=== PATIENT | male | born 2005 | race Caucasian/White ===

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

== ENCOUNTER 2024-04-15 15:25 | Emergency (ER) | payer BC, MEDICAID, SELFPAY ==
[2024-04-15 15:38] VITALS: BP 109/83; PULSE 93; RESP 16; TEMP 37.5; O2SAT 100
--- OUTSIDE RECORDS SUMMARY | 2024-04-15 16:11 | XMS_ITS | Clinical Summary ---
Author Organization [facility] Address [address] [place] [address] Care Team Providers Care Oil Well Cable Tool Operator Name Role Phone Cathie Marti MD Primary Care Provider [phone] Source Comments [facility],non-owned Affiliates and Associated Physician Practices is amultiple site organization consisting of ambulatory clinics and hospital sitesin [place], [place], [place] and [place]. This disclosure is being madepursuant to the Care Everywhere program and may not contain all information available regarding this patient. Last updated 17.[facility] [place] Allergies No known active allergies Medications Be aware that medications may not be up to date on this document. Always verify current medications with the patient. No known medications Active Problems Problem Noted Date Diagnosed Date Retained myringotomy tube 12/21/2011 Closed fracture of metacarpal bone 09/07/2011 Overview (12/16/2014): 07/27/2011 injured left hand playing kickball when his friend tackled him. Seen at [facility] and X-rays taken there. Left middle metacarpal minimally displaced fracture of dorsal shaft. 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 Resolved Problems Problem Noted Date Diagnosed Date Resolved Date Angioedema 08/02/2009 12/21/2011 Overview (12/16/2014): Family History Medical History Relation Name Comments None Known Father Hypertension Mother ND Other Asthma Paternal Grandfather Asthma Paternal Uncle Anesthesia Reaction Neg Hx Bleeding Disorders Neg Hx Childhood Hearing Disorder Neg Hx Cystic Fibrosis Neg Hx Eczema Neg Hx Immunodeficiency Neg Hx Tuberculosis Neg Hx Relation Name Status Comments Father Mother Other Paternal Grandfather Paternal Uncle Social History Tobacco Use Types Packs/Day Years Used Date Smoking Tobacco: Passive Smo ke Exposure - Never Smoker Smokeless Tobacco: Never Tobacco Cessation:Counseling Given: Yes Alcohol Use Standard Drinks/Week Comments Not Asked 0 (1 standard drink = 0.6 oz pur e alcohol) Sex and Gender Information Value Date Recorded Sex Assigned at Not on file Gender Identity Not on file Sexual Orientation Not on file Last Filed Vital Signs Vital Sign Reading Time Taken Comments Blood Pressure 108/62 01/18/2020 4:19 PM WINDOW TRIMMER Pulse 64 01/18/2020 4:19 PM WINDOW TRIMMER Temperature 36.6 ??C (97.8 ??F) 01/18/2020 4:19 PM CS T Respiratory Rate 20 01/18/2020 4:19 PM WINDOW TRIMMER Oxygen Saturation 98% 01/18/2020 4:19 PM WINDOW TRIMMER Inhaled Oxygen Concentration - - Weight 49 kg (108 lb) 01/18/2020 4:19 PM WINDOW TRIMMER Height 170.2 cm (5' 7 ) 01/18/2020 4:19 PM WINDOW TRIMMER Body Mass Index 16.92 01/18/2020 4:19 PM WINDOW TRIMMER Body Mass Index Percentile 7.32% 01/18/2020 4:1 9 PM WINDOW TRIMMER Growth Chart: CDC (Boys, 2-2 0 Years) Plan of Treatment Health Maintenance Due Date Last Done Comments HIV SCREENING 11/24/2019 HPV VACCINE (1 - Male 3-dose series) 11/24/2019 MENINGOCOCCAL (Group B) VACCINE (1 of 2 - Standard) 2020 HEPATITIS C SCREENING 11/19/2022 COVID-19 VACCINE (1 - 2023- season) 2023 INFLUENZA VACCINE (#1) 2023 8, 03/25/2009, 02/09/2008, Additional history exists DTAP/TDAP/TD VACCINES (1 - Tdap) 11/24/2023 HEPATITIS B VACCINE (1 of 3 - 19+ 3-dose series) 11/24/2023 PNEUMOCOCCAL VACCINE (1 of 2 - PCV) 11/24/2023 DEPRESSION SCREENING 03/18/2024 ZOSTER VACCINE (1 of 2) 2054 HIB VACCINE Aged Out No longer eligi ble based on patient's age to complete this topic MENINGOCOCCAL VACCINE Aged Out No carlos tim eligible based on patient's age to complete this topic Additional Health Concerns Infection Onset Date Last Indicated MRSA 10/27/2010 10/27/2010 Care Teams Oil Well Cable Tool Operator Relationship Specialty Start Date End Date Cathie Marti MD [address] [place] [id number] PCP - General 06/20/09
--- OUTSIDE RECORDS SUMMARY | 2024-04-15 16:11 | XMS_ITS | Clinical Summary ---
Author Organization [facility] Address [address] [place] [id number] Care Team Providers Care City Director Name Role Phone Cathie Marti MD Primary Care Provider [phone] Allergies No known active allergies Medications cloNIDine (CATAPRES) 0.1 MG Tablet Take 0.1 mg by mouth nightly. Active Social History Tobacco Use Types Packs/Day Years Used Date Smoking Tobacco: Never Smokeless Tobacco: Never Alcohol Use Standard Drinks/Week Comments Never 0 (1 standard drink = 0.6 oz pur e alcohol) AUDIT-C Answer Date Recorded Frequency of Alcohol Consumption Never 10/10/2018 Average Number of Drinks Not on file 019 Frequency of Binge Drinking Not on file 09/16 Sex and Gender Information Value Date Recorded Sex Assigned at Not on file Legal Sex Male 5:05 PM CDT Gender Identity Not on file Sexual Orientation Not on file Last Filed Vital Signs Vital Sign Reading Time Taken Comments Blood Pressure 106/75 11/08/2020 4:31 PM CDT Pulse 86 11/08/2020 4:31 PM CDT Temperature 35.9 ??C (96.6 ??F) 11/08/2020 3:19 PM CD T Respiratory Rate 20 11/08/2020 4:31 PM CDT Oxygen Saturation 99% 11/08/2020 4:31 PM CDT Inhaled Oxygen Concentration - - Weight 59 kg (130 lb) 11/08/2020 3:19 PM CDT Height 124.5 cm (4' 1 ) 10/10/2018 5:15 PM CDT Body Mass Index - - Plan of Treatment Health Maintenance Due Date Last Done Comments Hepatitis C Virus (HCV) Screening 2004 Human Papillomavirus (HPV) Immunization (1 - Male 3-dose series) 11/24/2019 Meningococcal B Immunization (1 of 2 - Standard) 2020 Influenza Immunization (#1) 11/17/20230 06/2017, 01/22/2011, 12/29/2009, Additional history exists SARS-COV-2 Immunization ( - 2023- season) 2023 Respiratory Syncytial Virus (RSV) Immunization (Adult) (1 - 1-dose 75+ series) 11/24/2079 Hepatitis B Immunization Completed 006, 04/06/2005, 01/23/2005, Additional history exists Pneumococcal Immunization Combined Aged Out 11/29/2005, 06/06/2005, 04/06/2005, Additional history exists No longer eligible based on patient's age to complete this topic Hepatitis A Immunization Discontinued 11/29/2008, 02/15 Measles Mumps Rubella (MMR) Immunization Discontinued 12/02/2008, 11/29/2005 Polio (IPV) Immunization Discontinued 009, 06/06/2005, 04/06/2005, Additional history exists Varicella Immunization Discontinued 0, 12/02/2008, 11/29/2005 DTaP/Tdap/Td Immunization Discontinued 2016, 12/02/2008, 02/26/2006, Additional history exists Meningococcal Immunization (ACWY) Aged Out 10/29/2016 No longer eligible based on patient's age to complete this topic TdaP Immunization Completed 10/29/2016 Rotavirus Immunization Aged Out No lo nger eligible based on patient's age to complete this topic Insurance MEDICAID [employer] Care Teams City Director Relationship Specialty Start Date End Date Cathie Marti MD [address] [place] [address] PCP - General Pediatrics 10/10/18
--- OUTSIDE RECORDS SUMMARY | 2024-04-15 16:11 | XMS_ITS | Referral Summary ---
Author Organization [facility] Address [address] [place] [address] Care Team Providers Care Senior Advisory Name Role Phone Cathie Marti MD Primary Care Provider [phone] Source Comments [facility],non-owned Affiliates and Associated Physician Practices is amultiple site organization consisting of ambulatory clinics and hospital sitesin [place], [place], [place] and [place]. This disclosure is being madepursuant to the Care Everywhere program and may not contain all information available regarding this patient. Last updated 17.[facility] [place] Allergies No known active allergies Medications Be aware that medications may not be up to date on this document. Always verify current medications with the patient. No known medications Active Problems Problem Noted Date Diagnosed Date Retained myringotomy tube 12/21/2011 Closed fracture of metacarpal bone 09/07/2011 Overview (12/16/2014): 07/27/2011 injured left hand playing kickball when his friend tackled him. Seen at [facility] and X-rays taken there. Left middle metacarpal minimally displaced fracture of dorsal shaft. 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 Resolved Problems Problem Noted Date Diagnosed Date Resolved Date Angioedema 08/02/2009 12/21/2011 Overview (12/16/2014): Social History Tobacco Use Types Packs/Day Years [...] Comments Blood Pressure 108/62 01/18/2020 4:19 PM GLYCERINE PLANT OPERATOR Pulse 64 01/18/2020 4:19 PM GLYCERINE PLANT OPERATOR Temperature 36.6 ??C (97.8 ??F) 01/18/2020 4:19 PM CS T Respiratory Rate 20 01/18/2020 4:19 PM GLYCERINE PLANT OPERATOR Oxygen Saturation 98% 01/18/2020 4:19 PM GLYCERINE PLANT OPERATOR Inhaled Oxygen Concentration - - Weight 49 kg (108 lb) 01/18/2020 4:19 PM GLYCERINE PLANT OPERATOR Height 170.2 cm (5' 7 ) 01/18/2020 4:19 PM GLYCERINE PLANT OPERATOR Body Mass Index 16.92 01/18/2020 4:19 PM GLYCERINE PLANT OPERATOR Body Mass Index Percentile 7.32% 01/18/2020 4:1 9 PM GLYCERINE PLANT OPERATOR Growth Chart: CDC (Boys, 2-2 0 Years) Plan of Treatment Not on file Additional Health Concerns Infection Onset Date Last Indicated MRSA 10/27/2010 10/27/2010 Care Teams Senior Advisory Relationship Specialty Start Date End Date Cathie Marti MD [address] [place] [address] [facility] - General 06/20/09
--- OUTSIDE RECORDS SUMMARY | 2024-04-15 16:11 | XMS_ITS | Patient Health Summary ---
Author Organization [facility] Address [address] [place] [address] Care Team Providers Care Creative Services Writer Name Role Phone Cathie Vaughn MD Primary Care Provider Note from [facility],non-owned Affiliates and Associated Physician Practices is amultiple site organization consisting of ambulatory clinics and hospital sitesin [place], [place], [place] and [place]. This disclosure is being madepursuant to the Care Everywhere program and may not contain all information available regarding this patient. Last updated 17.[facility] Allergies No known active allergies* Amoxicillin(Urticaria,Swelling),Inactive * Floxin Otic(Rash) -High Criticality,Inactive * Ofloxacin(Urticaria,Swelling),Inactive * Omnicef(Urticaria,Swelling),Inactive * Cefixime(Urticaria,Swelling),Inactive Medications Be aware that medications may not be up to date on this document. Always verify current medications with the patient. 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 Resolved Problems Problem Noted Date Diagnosed Date Resolved Date Angioedema 08/02/2009 12/21/2011 Social History Tobacco Use Types Packs/Day Years [...] Comments Blood Pressure 108/62 01/18/2020 4:19 PM BEET FLUMER Pulse 64 01/18/2020 4:19 PM [facility] FL[facility]ER Temperature 36.6 ??C (97.8 ??F) 01/18/2020 4:19 PM CS T Respiratory Rate 20 01/18/2020 4:19 PM BEET FLUMER Oxygen Saturation 98% 01/18/2020 4:19 PM BEET FLUMER Inhaled Oxygen Concentration - - Weight 49 kg (108 lb) 01/18/2020 4:19 PM BEET FLUMER Height 170.2 cm (5' 7 ) 01/18/2020 4:19 PM [facility] FLUMER Body Mass Index 16.92 01/18/2020 4:19 PM [facility]ET FLUMER Body Mass Index Percentile 7.32% 01/18/2020 4:1 9 PM BEET FLUMER Growth Chart: CDC (Boys, 2-2 0 Years) Procedures * CULTURE MRSA(Performed 11/26/2015) * REMOVAL CERUMEN EAR(Performed 12/21/2011) Performed for Unspecified otitis media, Retained foreign body of middle ear * EXAM UNDER ANESTHESIA EAR/NOSE/THROAT(Performed 12/21/2011) Performed for Unspecified otitis media, Retained foreign body of middle ear * REMOVAL TYMPANOSTOMY TUBE(Performed 12/21/2011) Performed for Unspecified otitis media, Retained foreign body of middle ear * CULTURE MRSA(Performed 12/21/2011) * XR HAND LEFT 3VW OR MORE(Performed 09/11/2011) Performed for Closed fracture of metacarpal bone(s), site unspecified * XR HAND LEFT 3VW OR MORE(Performed 08/21/2011) Performed for Closed fracture of metacarpal bone(s), site unspecified * XR HAND LEFT 3VW OR MORE(Performed 07/31/2011) Performed for Closed fracture of unspecified phalanx or phalanges of hand * EKG 15-LEAD(Performed 03/29/2011) Performed for Undiagnosed cardiac murmurs * ECHO CONSULT - PEDIATRIC(Performed 03/23/2011) Performed for Undiagnosed cardiac murmurs * CULTURE EAR(Performed 10/24/2010) Performed for Otorrhea * MASOOD BLOOD TITER(Performed 08/02/2009) Performed for Unspecified Urticaria * ALLERGEN INHALANT COMPREHENSIVE PROFILE(Performed 08/02/2009) Performed for Asthma, Nonallergic Rhinitis * ALLERGEN FOOD COMMON ADULT PROFILE(Performed 08/02/2009) Performed for Urticaria, Angioneurotic Edema not Elsewhere Classified * ALT(Performed 08/02/2009) Performed for Urticaria, Angioneurotic Edema not Elsewhere Classified * T4 FREE(Performed 08/02/2009) Performed for Urticaria, Angioneurotic Edema not Elsewhere Classified * THYROID AB PANEL (TPO AB+THYROGLOB AB)(Performed 08/02/2009) Performed for Urticaria, Angioneurotic Edema not Elsewhere Classified * RHEUMATOID FACTOR BLOOD SCREEN(Performed 08/02/2009) Performed for Urticaria, Angioneurotic Edema not Elsewhere Classified * MASOOD BLOOD SCREEN W/REFLEX TITER(Performed 08/02/2009) Performed for Urticaria, Angioneurotic Edema not Elsewhere Classified * COMPLEMENT C4(Performed 08/02/2009) Performed for Urticaria, Angioneurotic Edema not Elsewhere Classified * COMPLEMENT C3(Performed 08/02/2009) Performed for Urticaria, Angioneurotic Edema not Elsewhere Classified * C-REACTIVE PROTEIN(Performed 08/02/2009) Performed for Urticaria, Angioneurotic Edema not Elsewhere Classified * ERYTHROCYTE SEDIMENTATION RATE(Performed 08/02/2009) Performed for Urticaria, Angioneurotic Edema not Elsewhere Classified * TSH(Performed 08/02/2009) Performed for Urticaria, Angioneurotic Edema not Elsewhere Classified * COMPLEMENT TOTAL(Performed 08/02/2009) Performed for Urticaria, Angioneurotic Edema not Elsewhere Classified * PATHOLOGY/CYTOLOGY REPORT ORDER(Performed 07/08/2009) * GROSS EXAM PATHOLOGY(Performed 07/07/2009) Performed for Chronic Tonsillitis Results * CULTURE MRSA (11/26/2015 2:28 PM CDT) Only the most recent of2 resultswithin the time period is included. Culture Negative for MRSA ANNELIESE 11/28/2015 5:44 AM CDT [facility]CRO[facility] Microbiology SPECIMEN FROM NASAL FOSSAE / Unknown 11/26/2015 2:28 PM CDT 11/26/2015 4:47 PM CDT Steffi Walker DO LAB - MICROBIOLOGY O RDJEREMÍAS [facility] MICRO[facility]OLOG[facility] [address] [place], [place] [address], [facility] [phone] * XR HAND 3+ VW LEFT (09/11/2011 2:28 PM CDT) Only the most recent of3 resultswithin the time period is included. Anatomical Region Laterality Modality Wrist / Hand Radiographic Sheila ging 09/11/2011 3:04 PM CDT Impressions 09/11/2011 4:25 PM CDT Healing proximal third metacarpal fracture. Wing Gil MD Narrative 09/11/2011 4:25 PM CDT Exam: Left hand, 3 views Comparison: ??08/21/2011 Findings: Since the previous exam, there is increased bone formation at the proximal third metacarpal fracture. The fracture fragments are unchanged in position and alignment. ??No new fracture is demonstrated. The joint spaces are preserved. Procedure Note Nahed Mujica MD - 09/11/2011 Exam: Left hand, 3 views Comparison: 08/21/2011 Findings: Since the previous exam, there is increased bone formation at the proximal third metacarpal fracture. The fracture fragments are unchanged in position and alignment. No new fracture is demonstrated. The joint spaces are preserved. IMPRESSION Healing proximal third metacarpal fracture. Wing Gil MD Ronak Ac MD DIAGNOSTIC IMAGING O RDERABLES * EKG 15-LEAD (03/29/2011) Ordering Provider Unlisted ECG ORDERYves HARRIS * ECHO CONSULT - PEDIATRIC (03/23/2011 8:56 AM BEET FLUMER) 03/23/2011 8:56 AM BEET FLUMER Narrative [facility] - 03/23/2011 4:13 PM BEET FLUMER , Transthoracic Echocardiogram 2D, M-mode, Doppler, and Color Doppler Name: TED SABA MR #: [id number] Study date: 03/23/2011 Age: 5 years : 2005 Gender: Male Ht: 44.5 in / 113.1 cm Wt: 35.6 lb / 16.2 kg BSA: 0.72 m?? HR: BP: / age: NATALY: Maternal age: REFERRING PHYSICIAN: ??CATHIE VAUGHN MD FACTORY EXPERT: ??Марина Jasso MD PEDIATRIC ECHO AUTOMOTIVE TEACHER: ??Wes Stewart RDCS Indications: Murmur evaluation. History: ADHD Signs/symptoms include murmur. Procedure: The procedure was performed in the echo lab. Anatomic relationships: Visceral situs: normal. Left sided cardiac apex (levocardia). Normal atrial situs (atrial situs solitus). Concordant atrioventricular alignment. Ventricular d-loop. Normal infundibular anatomy. Concordant ventriculoarterial connection. Normally related great vessels. Systemic veins: SVC: The superior vena cava appeared of normal caliber, with normal flow. IVC: The inferior vena cava was normal in size and course. IVC Doppler: The flow pattern was normal. Pulmonary veins: At least two pulmonary veins drained normally to the left atrium. Doppler: Doppler flow pattern was normal in the pulmonary vein(s). Right atrium: Size was normal. Left atrium: Size was normal. Atrial septum: No defect or patent foramen ovale was identified. Tricuspid valve: The valve structure was normal. Doppler: The transtricuspid velocity was within the normal range. There was no evidence for tricuspid stenosis. There was trivial regurgitation. Mitral valve: Valve structure was normal. There is no mitral valve prolapse. Doppler: The transmitral velocity was within the normal range. There was no evidence for stenosis. There was no regurgitation. Right ventricle: The cavity size was normal. Wall thickness was normal. Systolic function was normal. RV outflow tract: There was no obstruction. Left ventricle: The cavity size was normal. Wall thickness was normal. Systolic function was normal. There were no regional wall motion abnormalities. LV outflow tract: There was no outflow obstruction. Ventricular septum: Thickness was normal. The septum was intact. Pulmonic valve: Leaflets exhibited normal thickness and normal cuspal separation. Doppler: The transpulmonic velocity was within the normal range. Aortic valve: The valve was trileaflet. Leaflets exhibited normal thickness and normal cuspal separation. Doppler: Transaortic velocity was within the normal range. There was no stenosis. There was no regurgitation. Pulmonary artery: The main pulmonary artery was normal, with normal-sized, confluent proximal branch pulmonary arteries. Aorta: A normal aortic arch was appreciated. The root was normal in size. The ascending aorta size was normal. Coronary arteries: The size and course of the left main, proximal left anterior descending, and proximal right coronary arteries were normal. Left main coronary artery: Flow was normal. Left anterior descending: Flow was normal. Extracardiac shunting: No ductal shunt was detected by Doppler. Pericardium: There was no pericardial effusion. Impressions: - ??Diagnoses: No intracardiac abnormalities demonstrated and normal biventricular systolic function. Prepared and signed by Марина Jasso MD Signed 03/23/2011 16:15:37 System measurement tables MM %FS: 33.7 % EDV(Teich): 42.9 ml EF(Teich): 63.8 % ESV(Teich): 15.5 ml IVSd: 4.6 mm IVSs: 8.5 mm LVIDd: 32.6 mm LVIDs: 21.6 mm LVPWd: 4.6 mm LVPWs: 8.5 mm LVd Mass: 26.5 g LVd Mass (ASE): 32.7 g LVd Mass Ind (ASE): 45.4 g/m2 LVd Mass Index: 36.8 g/m2 LVs Mass: 35.9 g LVs Mass (ASE): 40.2 g LVs Mass Ind (ASE): 55.9 g/m2 LVs Mass Index: 49.9 g/m2 SV(Teich): 27.4 ml Procedure Note 03/23/2011 , Transthoracic Echocardiogram 2D, M-mode, Doppler, and Color Doppler Name: TED SABA MR #: [id number] Study date: 03/23/2011 Age: 5 years : 2005 Gender: Male Ht: 44.5 in / 113.1 cm Wt: 35.6 lb / 16.2 kg BSA: 0.72 m?? HR: BP: / age: NATALY: Maternal age: REFERRING PHYSICIAN: CATHIE VAUGHN MD FACTORY EXPERT: Марина Jasso MD PEDIATRIC ECHO AUTOMOTIVE TEACHER: Wes Stewart RDCS Indications: Murmur evaluation. History: ADHD Signs/symptoms include murmur. Procedure: The procedure was performed in the echo lab. Anatomic relationships: Visceral situs: normal. Left sided cardiac apex (levocardia). Normal atrial situs (atrial situs solitus). Concordant atrioventricular alignment. Ventricular d-loop. Normal infundibular anatomy. Concordant ventriculoarterial connection. Normally related great vessels. Systemic veins: SVC: The superior vena cava appeared of normal caliber, with normal flow. IVC: The inferior vena cava was normal in size and course. IVC Doppler: The flow pattern was normal. Pulmonary veins: At least two pulmonary veins drained normally to the left atrium. Doppler: Doppler flow pattern was normal in the pulmonary vein(s). Right atrium: Size was normal. Left atrium: Size was normal. Atrial septum: No defect or patent foramen ovale was identified. Tricuspid valve: The valve structure was normal. Doppler: The transtricuspid velocity was within the normal range. There was no evidence for tricuspid stenosis. There was trivial regurgitation. Mitral valve: Valve structure was normal. There is no mitral valve prolapse. Doppler: The transmitral velocity was within the normal range. There was no evidence for stenosis. There was no regurgitation. Right ventricle: The cavity size was normal. Wall thickness was normal. Systolic function was normal. RV outflow tract: There was no obstruction. Left ventricle: The cavity size was normal. Wall thickness was normal. Systolic function was normal. There were no regional wall motion abnormalities. LV outflow tract: There was no outflow obstruction. Ventricular septum: Thickness was normal. The septum was intact. Pulmonic valve: Leaflets exhibited normal thickness and normal cuspal separation. Doppler: The transpulmonic velocity was within the normal range. Aortic valve: The valve was trileaflet. Leaflets exhibited normal thickness and normal cuspal separation. Doppler: Transaortic velocity was within the normal range. There was no stenosis. There was no regurgitation. Pulmonary artery: The main pulmonary artery was normal, with normal-sized, confluent proximal branch pulmonary arteries. Aorta: A normal aortic arch was appreciated. The root was normal in size. The ascending aorta size was normal. Coronary arteries: The size and course of the left main, proximal left anterior descending, and proximal right coronary arteries were normal. Left main coronary artery: Flow was normal. Left anterior descending: Flow was normal. Extracardiac shunting: No ductal shunt was detected by Doppler. Pericardium: There was no pericardial effusion. Impressions: - Diagnoses: No intracardiac abnormalities demonstrated and normal biventricular systolic function. Prepared and signed by Марина Jasso MD Signed 03/23/2011 16:15:37 System measurement tables MM %FS: 33.7 % EDV(Teich): 42.9 ml EF(Teich): 63.8 % ESV(Teich): 15.5 ml IVSd: 4.6 mm IVSs: 8.5 mm LVIDd: 32.6 mm LVIDs: 21.6 mm LVPWd: 4.6 mm LVPWs: 8.5 mm LVd Mass: 26.5 g LVd Mass (ASE): 32.7 g LVd Mass Ind (ASE): 45.4 g/m2 LVd Mass Index: 36.8 g/m2 LVs Mass: 35.9 g LVs Mass (ASE): 40.2 g LVs Mass Ind (ASE): 55.9 g/m2 LVs Mass Index: 49.9 g/m2 SV(Teich): 27.4 ml Provider Unknown ECHO ORDERABLES [facility] [address] [place] [address] * CULTURE EAR (10/24/2010 2:30 PM CDT) Result [facility] Comment: Final GRAM STAIN Light GRAM POSITIVE COCCI Heavy WBC's CULTURE Heavy growth Mixed aerobic ?? ethan STAPHYLOCOCCUS AUREUS (MRSA) ??Heavy growth ??Methicillin-resistant ? staphylococci are resistant ? to all currently available ? Beta-lactam antibiotics. ? Contact Precautions ? required. For any ? questions, call Infection ? Control. ??Called/Copy sent to Infection ? Control 10/26 ??Called to/Read back by ??dr ? office 10/26 ??Ciprofloxacin ? ANNELIESE ?Resistant ?>=8 ?? ug/ml ??Clindamycin ? ANNELIESE ?Susceptible <=0.25 ?? ug/ml ??Erythromycin ?ANNELIESE ?Resistant ?>=8 ?? ug/ml ??Gentamicin ?ANNELIESE ?Susceptible ??<=0.5 ?? ug/ml ??Levofloxacin ?ANNELIESE ?Resistant ?4 ?? ug/ml ??Oxacillin ? ANNELIESE ?Resistant ?>=4 ?? ug/ml ??Tetracycline ?ANNELIEES ?Susceptible ?<=1 ?? ug/ml ??Trimeth/Sulfa ? ANNELIESE ?Susceptible ?? <=10 ?? ug/ml ??Vancomycin ?ANNELIESE ?Susceptible ??<=0.5 ?? ug/ml EAR PART / Unknown 1 2:30 PM CDT 10/24/2010 2:33 PM CDT Narrative Resulting Agency Comment Performed By [facility];[address];[place] [address] Alee Rick [facility] LAB - MICROBIOL OGY ORDERABLES [facility] [address] [place] [address] * ALLERGEN INHALANT COMPREHENSIVE PROFILE (08/02/2009 4:49 PM CDT) Allergen Alternaria alternata <0.10 <=0.34 KU/L [facility] Allergen Hormodendrum <0.10 <=0.34 KU/L [facility] Allergen Aspergillus Fumigatus <0.10 <=0.34 KU/L [facility] Allergen P. Notatum <0.10 <=0.34 KU/L [facility] Alelrgen Cat Dander <0.10 <=0.34 KU/L [facility] Allergen Dog Epithelium <0.10 <=0.34 KU/L [facility] Allergen Dermatophagoides pteronyssinus <0.10 <=0.34 KU/L [facility] Allergen Dermatophagoides farinae <0.10 <=0.34 KU/L [facility] Allergen Radha Grass <0.10 <=0.34 KU/L [facility] Allergen Manan Grass <0.10 <=0.34 KU/L [facility] Allergen Common Ragweed <0.10 <=0.34 KU/L [facility] Allergen [place] 0.11 <=0.34 KU/L [facility] Allergen Elm <0.10 <=0.34 KU/L [facility] Allergen Gardena Tree <0.10 <=0.34 KU/L [facility] Allergen [place] Tree <0.10 <=0.34 KU/L [facility] Allergen [place] Tree <0.10 <=0.34 KU/L [facility] Allergen [place] <0.10 <=0.34 KU/L [facility] Allergen Cow Dander <0.10 <=0.34 KU/L [facility] Allergen Horse Dander <0.10 <=0.34 KU/L [facility] Allergen House Dust Wilder <0.10 <=0.34 KU/L [facility] Allergen Barajas's Quarters <0.10 <=0.34 KU/L [facility] Allergen B[place] Grass <0.10 <=0.34 KU/L [facility] Allergen Ug[place]an Plantain <0.10 <=0.34 KU/L [facility] Allergen Aamir Grass <0.10 <=0.34 KU/L [facility] Allergen Perennial [place] Grass <0.10 <=0.34 KU/L [facility] Allergen British Thistle <0.10 <=0.34 KU/L [facility] Allergen Mugwort <0.10 <=0.34 KU/[facility] IgE Total 10 0 - 50 IU/ml [facility] Immunocap Score KU/L [facility] Comment: REFERENCE INTERVAL: Allergen, Interpretation Less than 0.10 kU/L......No significant level detected 0.10-0.34 kU/L...........Clinical relevance undetermined 0.35-0.70 kU/L...........Low 0.71-3.50 kU/L...........Moderate 3.51-17.50 kU/L..........High 17.51 kU/L or Greater....Very High Allergen results of 0.10-0.34 kU/L are intended for specialist use as the clinical relevance is undetermined. Although increasing ranges are reflective of increasing concentrations of allergen-specific IgE, this may not correlate with the degree of clinical response or skin testing when challenged with a specific allergen. The correlation of allergy laboratory results with clinical history and in vivo reactivity to specific allergens is essential. A negative test may not rule out clinical allergy or even anaphylaxis. Comment Ref Lab [facility] Comment: TEST INFORMATION: Immunoglobulin E To convert to ng/mL, multiply IU/mL by 2.4. BLOOD SPECIMEN / Unknown 08/02/2009 4:49 PM CDT 08/02/2009 5:35 PM CDT Narrative Resulting Agency Comment Performed By [facility] ? [address] ? [place], [place] [address] Zurdo aVrgas MD LAB - SEROLOGY ORDER ABHILASH Performing Organization Address City/[facility]/ZIP Co de Phone Number [facility] * ALLERGEN FOOD COMMON ADULT FOOD PROFILE (08/02/2009 4:49 PM CDT) Allergen Egg White <0.10 <=0.34 KU/[facility] Allergen Peanut <0.10 <=0.34 KU/[facility] Allergen Wheat <0.10 <=0.34 KU/[facility] Allergen Call <0.10 <=0.34 KU/[facility] Allergen Codfish <0.10 <=0.34 KU/[facility] Allergen Milk <0.10 <=0.34 KU/[facility] Allergen Soybean <0.10 <=0.34 KU/[facility] Allergen [place] <0.10 <=0.34 KU/[facility] Allergen Shrimp <0.10 <=0.34 KU/[facility] Allergen Scallop <0.10 <=0.34 KU/[facility] Allergen Clam <0.10 <=0.34 KU/[facility] IgE Total 10 0 - 50 IU/ml [facility] Comment Ref Lab [facility] Comment: TEST INFORMATION: Immunoglobulin E To convert to ng/mL, multiply IU/mL by 2.4. BLOOD SPECIMEN / Unknown 08/02/2009 4:49 PM CDT 08/02/2009 5:32 PM CDT Narrative Resulting Agency Comment Performed By [facility] ? [address] ? [place], [place] [address] Zurdo Vargas MD LAB - CHEMISTRY FAUSTINA LEE [facility] * RHEUMATOID FACTOR BLOOD SCREEN (08/02/2009 4:49 PM CDT) Rheumatoid Factor negative Negative [facility] BLOOD SPECIMEN / Unknown 08/02/2009 4:49 PM CDT 08/02/2009 5:20 PM CDT Zurdo Vargas MD LAB - CHEMISTRY FAUSTINA LEE Performing Organization Address [facility] Co de Phone Number [facility] * C-REACTIVE PROTEIN (08/02/2009 4:49 PM CDT) C-Reactive Protein <0.5 <1.0 mg/dl mg/dl [facility] BLOOD SPECIMEN / Unknown 08/02/2009 4:49 PM CDT 08/02/2009 5:48 PM CDT Zurdo Vargas MD LAB - CHEMISTRY FAUSTINA LEE Performing Organization Address [facility] Co de Phone Number [facility] * MASOOD BLOOD TITER (08/02/2009 4:49 PM CDT) MASOOD Positive, less than 1 to 40 Negative [facility] MASOOD Pattern No pattern detected. [facility] BLOOD SPECIMEN / Unknown 08/02/2009 4:49 PM CDT 08/04/2009 10:45 AM CDT Narrative Resulting Agency Comment Performed By [facility] ? Laboratory ? [address] Zurdo Vargas MD LAB - CHEMISTRY FAUSTINA LEE Performing Organization Address [facility]/ZIP Co de Phone Number [facility] * (ABNORMAL) MASOOD BLOOD SCREEN (08/02/2009 4:49 PM CDT) MASOOD Positive(H) Negative [facility] BLOOD SPECIMEN / Unknown 08/02/2009 4:49 PM CDT 08/02/2009 5:34 PM CDT Narrative Resulting Agency Comment Performed By [facility] ? Laboratory ? [address] [facility] Zurdo Vargas MD LAB - CHEMISTRY FAUSTINA LEE Performing Organization Address [facility]/ZIP Co de Phone Number [facility] * THYROID ANTIBODY PANEL (08/02/2009 4:49 PM CDT) Thyroglobulin Antibody <0.9 0.0 - 4.0 IU/ml [facility] Thyroid Peroxidase TPO Antibody 0.5 0.0 - 9.0 IU/ml [facility] Comment Ref Lab [facility] Comment: TEST INFORMATION: Thyroglobulin Antibody A value of 4.0 IU/mL or less indicates a negative result for thyroglobulin antibodies. BLOOD SPECIMEN / Unknown 08/02/2009 4:49 PM CDT 08/02/2009 5:33 PM CDT Narrative Resulting Agency Comment Performed By [facility] ? [address] ? [place], [place] [address] Zurdo Vargas MD LAB - CHEMISTRY FAUSTINA LEE Performing Organization Address City/[facility]/ZIP Co de Phone Number [facility] * SED RATE WESTERGREN AUTO (08/02/2009 4:49 PM CDT) Erythrocyte Sedimentation Rate Westergren 8 0 - 13 mm/Hr [facility] BLOOD SPECIMEN / Unknown 08/02/2009 4:49 PM CDT 08/02/2009 5:20 PM CDT Zurdo Vargas MD LAB - HEMATOLOGY MARINO VERONICA [facility] * COMPLEMENT C4 (08/02/2009 4:49 PM CDT) Complement C4 18 12 - 36 mg/dl [facility] BLOOD SPECIMEN / Unknown 08/02/2009 4:49 PM CDT 08/02/2009 5:46 PM CDT Zurdo Vargas MD LAB - SEROLOGY ORDER ABHILASH Performing Organization Address [facility] Co de Phone Number [facility] * ALT (08/02/2009 4:49 PM CDT) ALT 17 10 - 25 Units/L [facility] BLOOD SPECIMEN / Unknown 08/02/2009 4:49 PM CDT 08/02/2009 5:49 PM CDT Zurdo Vargas MD LAB - CHEMISTRY FAUSTINA LEE Performing Organization Address [facility] Co de Phone Number [facility] * T4 FREE (08/02/2009 4:49 PM CDT) T4 Free 0.8 0.71 - 1.85 ng/dl [facility] BLOOD SPECIMEN / Unknown 08/02/2009 4:49 PM CDT 08/02/2009 5:50 PM CDT Zurdo Vargas MD LAB - CHEMISTRY FAUSTINA LEE Performing Organization Address [facility] [place] Co de Phone Number [facility] * COMPLEMENT C3 (08/02/2009 4:49 PM CDT) Complement C3 108 85 - 193 mg/dl [facility] BLOOD SPECIMEN / Unknown 08/02/2009 4:49 PM CDT 08/02/2009 6:10 PM CDT Zurdo Vargas MD LAB - CHEMISTRY [facility] Performing Organization Address [facility] Co de Phone Number [facility] * COMPLEMENT TOTAL (08/02/2009 4:45 PM CDT) Complement Total CH50 96 60 - 144 Units [facility] Comment Ref Lab [facility] Comment: REFERENCE INTERVAL: Complement Activity, Total EIA ??59 ??Units or less .......... Low ??60-144 ?? Units .............. Normal ??145 Units or greater ....... High BLOOD SPECIMEN / Unknown 08/02/2009 4:45 PM CDT 08/02/2009 5:34 PM CDT Narrative Resulting Agency Comment Performed By [facility] ? [address] ? [place], [place] [address] Zurdo Vargas MD LAB - CHEMISTRY [facility]USTINA LEE Performing Organization Address [facility] Co de Phone Number [facility] * TSH (08/02/2009 4:45 PM CDT) Pathologist [facility] TSH 1.554 0.490 - 4.670 mcIU/mL [facility] BLOOD SPECIMEN / Unknown 08/02/2009 4:45 PM CDT 08/02/2009 5:52 PM CDT Zurdo Vargas MD LAB - CHEMISTRY [facility]EE Performing Organization Address [facility] Co de Phone Number [facility] * PATHOLOGY/CYTOLOGY REPORT ORDER (07/08/2009 2:55 PM CDT) Narrative 07/08/2009 2:55 PM CDT Ordered by an unspecified provider. Transcriptions Document, Scanned - 07/07/2009 12:00 AM CDT Scanned Document LAB - PATHOLOGY/CYTO LOGY ORDERABLES * GROSS EXAM PATHOLOGY (07/07/2009 12:45 PM CDT) [facility] Clinical History [facility] Comment: The patient is a 3-year-old boy with chronic otitis media with effusion and chronic tonsillitis. Gross Description [facility] Comment: Submitted fresh in one container for gross examination only, labeled with the patient's name, Ted Saba, and tonsils, are two egg- shaped, pink-clifton palatine tonsils measuring 2 x 1.3 x 1 cm and 2.2 x 1.3 x 1 cm, weighing approximately 4 grams combined. On cut surface, the tonsils have a cerebriform, yellow-clifton appearance. No sections are taken. ??(CT/nab) Gross Diagnosis [facility] Comment: GROSS DIAGNOSIS: ??PALATINE TONSILS. This case has been personally reviewed and interpreted by the attending (teaching) pathologist. Occupational Health Specialist MARLEY RAMOS, [facility] Pathologist Galileo zhao M.D. [facility] Electronically Signed By Galileo zhao M.D. [facility] SPECIMEN FROM TONSIL / Unknown 07/07/2009 12:45 PM CDT 07/07/2009 1:39 PM CDT Karen Chase MD LAB - PATHOLOGY/CYTO LOGY ORDERABLES [facility] Care Teams Creative Services Writer Relationship Specialty Start Date End Date Cathie Vaughn MD [address] [place] [address] [place] [address] [phone] PCP - General 06/20/09
--- NOTE | 2024-04-15 16:51 | ED_ITS ---
HPI - Nausea/Vomiting/Diarrhea General Chief complaint: Nausea/Vomiting/Diarrhea Stated complaint: nausea/can't keep anything down Time Seen by Provider: 04/15/24 16:30 Source: patient, family, RN notes reviewed and old records reviewed Mode of arrival: ambulatory Limitations: no limitations History of Present Illness HPI Narrative: 18 year old male accompanied by mother presents to express care with complaints of nausea, vomiting and diarrhea starting at 0100 today and has not been able to keep any food or fluids down. Patient reports that he does not have any abdominal pain just some cramping sensation in stomach with diarrhea. Patient states he has had a low grade fever, denies any chills or sweats or any body aches. Patient has not taken any OTC medication for his symptoms. MD elicited complaint: nausea, vomiting and diarrhea Onset (ago): hour(s) (since 0100 today) Description of vomiting: food contents and watery Description of diarrhea: watery and lose Associated nausea: Yes Associated abdominal pain: No Severity: moderate Treatment prior to arrival: none Related Data Allergies Allergy/AdvReac Type Severity Reaction Status Date / Time No Known Allergies Allergy Verified 06/05/21 09:00 Review of Systems Review of Systems: CONSTITUTIONAL: reports low grade fever, chills, or sweats. EYES: Denies visual changes, redness, or discharge. ENT: Denies rhinorrhea, congestion, sore throat, or otalgia. CARDIOVASCULAR: Denies chest pain, palpitations, or edema. RESPIRATORY: Denies cough or dyspnea. GASTROINTESTINAL: Denies abdominal pain,positive for nausea, vomiting, or diarrhea. GENITOURINARY: Denies dysuria or hematuria. SKIN: Denies rash or itching. MUSCULOSKELETAL: Denies back pain, joint pain, or myalgia. NEUROLOGIC: Denies headache, numbness, or weakness. PSYCHIATRIC: Denies anxiety or depression. All systems reviewed & are unremarkable except as noted in HPI and below PMFSH Family History Family History Other Hypertension Social History Social History Smoking status: Unknown if ever smoked Alcohol intake: unknown Substance use: current Substance use type: marijuana Living arrangements: with family Gender identity (if verbalized by the patient): Male Comments At time of signature, agree with nursing past medical, surgical, social and family history. There is no relevant family history pertinent to the presenting complaint Exam Narrative: GENERAL: Ill-appearing, well-nourished, and in no acute distress. HEAD: Normocephalic, atraumatic. EYES: PERRLA and EOMI. ENT: Nares clear, no rhinorrhea or epistaxis. Mucous membranes moist.TM's normal throat with no redness or swelling NECK: Supple. no lymphadenopathy CHEST: Clear to auscultation. No respiratory distress.SAO2 100% on room air HEART: Regular rate and rhythm. No murmur heard. Normal peripheral pulses. ABDOMEN: Soft, nontender to palpation, no McBurney point tenderness, nondistended, normal active bowel sounds.no palpable masses EXTREMITIES: Normal range of motion. No edema. SKIN: Warm, dry, no rash.i NEURO: No focal deficits. Alert and oriented x3. Course Course Emergency Course: Patient is aware of diagnosis, understands and agrees to treatment plan.? Anticipatory guidance given.? Patient agrees to follow-up as directed and is aware of reasons to seek care at the emergency department. Portions of this record may have been created with voice recognition software Level of Care: Express Care Visit Vital Signs Vital signs: Vital Signs Temperature 37.5 C 04/15/24 15:38 Pulse Rate 93 04/15/24 15:38 Respiratory Rate 16 04/15/24 15:38 Blood Pressure 109/83 04/15/24 15:38 Pulse Oximetry 100 04/15/24 15:38 Oxygen Delivery Room Air 04/15/24 15:38 Temperature 37.5 C 04/15/24 15:38 Pulse Rate 93 04/15/24 15:38 Respiratory Rate 16 04/15/24 15:38 Blood Pressure 109/83 04/15/24 15:38 Pulse Oximetry 100 04/15/24 15:38 Oxygen Delivery Room Air 04/15/24 15:38 Reviewed MDM - Nausea/Vomiting/Diarrhea Differential Diagnosis Differential diagnosis: Likely gastroenteritis, dehydration and other (viral s yndrome, influenza) Medical Records Attestation: I reviewed the patient's medical records. Lab Data Attestation: I reviewed the patient's lab results. Lab results narrative: Influenza A negative, Influenza B negative, COVID antigen negative Labs: Lab Results 04/15/24 Range/Units 17:19 POC Influenza A Ag Negative (Negative) POC Influenza B Ag Negative (Negative) POC SARS CoV-2 Ag Negative (Negative) Critical Care Time Critical Care Time Critical Care Time: No Discharge Plan Discharge Clinical Impression: Gastroenteritis Patient Disposition: Home, Self-Care Condition: Stable Instructions: Antibiotic Form Additional Instructions: Clear liquids for the next 8-10 hours, then advance to a bland diet as tolerated A bland diet can consist of--BRAT diet which is bananas, rice, applesauce, and toast Avoid fried, greasy, fatty, fried foods Avoid caffeine, nicotine, and alcohol Return to your regular diet in the next 3-4 days Medication as directed for nausea and vomiting Sometimes ibuprofen/Aleve can cause increased stomach upset Tylenol for pain or fever [id number] Imodium if develop diarrhea Follow-up with her PCP if continued problems or uncontrolled pain Patient Language: Upper Sorbian Prescriptions: New ondansetron 4 mg tablet,disintegrating 4 mg PO Q6H PRN (Reason: nausea and vomiting) Qty: 14 0RF Follow-up/Referrals: Kaia,MD Cathie [Primary Care Provider] - Stand Alone Forms: Work/School Release IP Time of Disposition: 17:27 Quality Leakey Coma Scale Eyes: Open Verbal: Oriented and Alert Motor: Follows Commands Leakey Coma Total Score: 15
[2024-04-15 17:21] LABS: EDCOVIDSCREEN Negative (Negative); EDINFLUASCREEN Negative (Negative); EDINFLUBSCREEN Negative (Negative)
== END 2024-04-15 17:40 | disposition home or self-care (01) ==
PROVIDERS: Emergency Provider Registered Nurse; PCP Pediatrics
DX: K52.9 Noninfective gastroenteritis and colitis, unspecified (principal); Z20.822 Contact with and (suspected) exposure to COVID-19
CPT/HCPCS: 87426; 87804; 99213; G0463